=== PATIENT | female | born 1990 | race African-American/Black ===

== ENCOUNTER 2020-08-09 12:21 | Emergency (ER) | payer OTHER, SELFPAY ==
[2020-08-09 12:45] VITALS: BP 189/107; PULSE 77; RESP 20; TEMP 37.5; O2SAT 100; BMI 39.4
--- NOTE | 2020-08-09 13:10 | ECG_ITS ---
Test Reason : NAUSEA Blood Pressure : / mmHG Vent. Rate : 077 BPM Atrial Rate : 077 BPM P-R Int : 164 ms QRS Dur : 078 ms QT Int : 370 ms P-R-T Axes : 039 041 037 degrees QTc Int : 418 ms Normal sinus rhythm Normal ECG No previous ECGs available Referred By: Chung White Electronically Signed By:GILBERT SAVAGE MD
[2020-08-09 13:59] LABS: MANUAL DIFF FLAG NO
[2020-08-09 14:04] LABS: Glucose Urine UA NEG (NEG); Leukocyte Esterase Urine NEG (NEG); Nitrite Urine NEG (NEG); Specific Gravity - Urine 1.015 (1.005-1.025); Urine Blood NEG (NEG); Urine Ketones 5 MG/DL (NEG); Urine Protein NEG (NEG-TRACE)
[2020-08-09 14:07] LABS: Basophils Percent Auto 0.3 % (0-2); Eosinophils Percent Auto 0.1 % (0-4); Hematocrit 41.9 % (37-47); Hemoglobin 13.5 g/dl (12.0-16.0); Imm Gran Abs Auto 0.02 X10*3/uL (0.00-0.03); Imm Gran Pct Auto 0.2 % (0.0-0.4); Lymphocytes Absolute Auto 2.1 X10*3/uL (1.2-4.9); Lymphocytes Percent Auto 23.2 % (20-40); Mean Corpuscular HGB Conc 32.2 g/dl (31.0-35.0); Mean Corpuscular Hemoglobin 25.9 pg (27.0-33.0); Mean Corpuscular Volume 80.4 fL (80-98); Mean Platelet Volume 10.4 fL (9.4-12.3); Monocytes Absolute Auto 0.6 X10*3/uL (0.1-1.2); Monocytes Percent Auto 6.4 % (2-11); Neutrophils Absolute Auto 6.2 X10*3/uL (2.0-8.3); Neutrophils Percent Auto 69.8 % (45-73); Platelet Count 229 X10*3/uL (160-400); Red Blood Count 5.21 X10*6/uL (4.20-5.50); Red Cell Distribution Width 13.3 % (11.0-16.0); White Blood Count 8.9 X10*3/uL (4.8-10.8)
[2020-08-09 14:07] LABS: Appearance Urine CLEAR; Color Urine YELLOW
[2020-08-09 14:09] LABS: INTERNATIONAL NORM RATIO 1.1 (0.9-1.1); Prothrombin Time 13.5 SEC (10.8-13.0)
[2020-08-09 14:12] LABS: D Dimer 435 NG/ML; Partial Thromboplastin Time 37.7 SEC (24.1-38.0)
[2020-08-09 14:21] LABS: Alanine Aminotransferase 13 U/L (0-31); Albumin Level 4.8 g/dL (3.5-5.0); Alkaline Phosphatase 50 U/L (39-117); Anion Gap 17 (12-20); Aspartate Amino Transferase 15 U/L (5-31); Bilirubin Direct 0.2 mg/dL (0.0-0.5); Bilirubin Total 0.6 mg/dL (0.0-1.0); Blood Urea Nitrogen 6 mg/dL (9-16); Calcium 9.7 mg/dL (8.4-10.2); Carbon Dioxide 21 mmol/L (22-29); Chloride 103 mmol/L (96-108); Creatinine Clr Calc Pharmacy 122.9; Estimated Glomerular Filt Rate > 60; Glucose Random 92 mg/dL (60-115); Lipase 24 U/L (8-78); Potassium 4.5 mmol/l (3.3-5.1); Sodium 136 mmol/L (135-145); Total Protein 7.6 g/dL (6.5-8.0)
[2020-08-09] MEDS: Ketorolac Tromethamine 30 MG/ML VIAL IVPUSH (14:25)
[2020-08-09] MEDS: Metoclopramide HCl 10 MG/2 ML VIAL IVPUSH (14:26)
[2020-08-09 14:27] LABS: HCG Quantitative < 2 mIU/mL
[2020-08-09] MEDS: 0.9 % Sodium Chloride 1,000 ML 999 ML IVCONT (14:27)
[2020-08-09 14:28] LABS: B Type Natriuretic Peptide < 10 pg/mL (<100); Troponin-I High Sensitivity < 3.5 ng/L (<3.5-17.0)
--- NOTE | 2020-08-09 14:34 | ED_ITS ---
HPI - Nausea/Vomiting/Diarrhea General Chief complaint: Nausea/Vomiting/Diarrhea Stated complaint: ABD PAIN, VOMITING Time Seen by Provider: 08/09/20 13:10 Source: patient Mode of arrival: ambulatory Limitations: no limitations History of Present Illness HPI Narrative: patient presents to the ED for multiple complaints. Patient's 1st complaint is vomiting and nausea with upper abdominal pain for the past month. Patient was sent by PCP to ED to get repeat COVID and flu swab sent due to her having the symptoms. Patient also states the last 3 days having right- sided chest pain. Patient states no coughing, fever, chills swelling of lower extremities, calf pain, control use, or coughing up blood. Patient states upper abdominal pain radiating to the back. Associated nausea: Yes Related Data Home Medications Medication Instructions Recorded Confirmed albuterol sulfate 90 mcg/actuation INHALATION 08/09/20 aerosol inhaler amoxicillin 500 mg capsule 500 mg PO BID 08/09/20 doxepin 50 mg capsule 50 mg PO BEDTIME 08/09/20 fluticasone propionate 220 1 puff PO BID 08/09/20 mcg/actuation HFA aerosol inhaler hydrocodone 5 mg-acetaminophen 325 1 tab PO BID PRN 08/09/20 mg tablet lamotrigine 150 mg tablet 150 mg PO BID 08/09/20 metoclopramide HCl 10 mg tablet 10 mg PO Q8H PRN 08/09/20 oxycodone-acetaminophen 5 mg-325 1 tab PO Q6H PRN 08/09/20 mg tablet prednisone 20 mg tablet 20 mg PO DAILY 08/09/20 trazodone 50 mg tablet 75 mg PO BEDTIME 08/09/20 venlafaxine 150 mg 150 mg PO DAILY 08/09/20 capsule,extended release 24 hr venlafaxine 75 mg capsule,extended 75 mg PO QAM 08/09/20 release 24 hr Previous Rx's Medication Instructions Recorded amlodipine 5 mg PO DAILY #16 tab 08/09/20 azithromycin See Rx Instructions .ROUTE 08/09/20 .COMPLEX #6 tab azithromycin [Zithromax Z-Neal] See Rx Instructions .ROUTE 08/09/20 .COMPLEX #6 tab oxycodone-acetaminophen [Percocet] 1 tab PO Q6H PRN #12 tab 08/09/20 prednisone 40 mg PO DAILY #10 tab 08/09/20 Allergies Allergy/AdvReac Type Severity Reaction Status Date / Time ondansetron [From ZOFRAN] Allergy Intermediate NAUSEA & Unverified 08/09/20 12:45 VOMITING Review of Systems Review of Systems: Yes all other systems are reviewed and are negative Eyes: Eyes: Reports as per HPI, Reports no additional eye complaints, Denies blind spots, Denies blurry vision, Denies exophthalmos, Denies change in vision, Denies decreased night vision, Denies floaters, Denies irritation, Denies itchy eyes and Denies loss of peripheral vision ENT: Reports system reviewed and no additional complaints, except as documented, Reports as per HPI and Denies odynophagia Cardiovascular: Cardiovascular: Reports as per HPI, Reports no additional cardiovascular complaints, Denies Abdominal Cramping after Meds, Denies Abdominal Distension, Reports chest pain, Denies chest pain at rest, Denies rap id heart rate, Denies edema, Denies irregular heart rhythm, Denies dyspnea, Denies dyspnea on exertion, Denies orthopnea and Denies paroxysmal nocturnal dys pnea Respiratory: Respiratory: Reports as per HPI, Reports no additional respiratory complaints, Denies no additional respiratory complaints, Denies c hange in phlegm color, Denies chest congestion, Denies cough, Denies hemoptysis, Denies excessive phlegm production, Denies pain on inspiration, Denies dyspnea and Denies dyspnea on exertion Gastrointestinal: Gastrointestinal: Reports abdominal pain, Denies belching, Denies melena, Denies bloating, Denies hematochezia, Denies tenesmus, Denies change in stool character, Denies coffee ground emesis, Denies constipation, Denies GI cramping, Denies excessive flatus, Denies fecal incontinence, Denies loose stools, Reports nausea, Denies odynophagia and Reports vomiting Genitourinary: Genitourinary: Denies urinary frequency, Denies difficulty voiding, Denies nocturia, Denies pelvic pain, Denies urinary incontinence, Denies urinary hesitancy and Denies urinary urgency Musculoskeletal: Musculoskeletal: Reports as per HPI Neurologic: Reports system reviewed and no additional complaints, except as documented and Reports as per HPI Psychiatric: Psychiatric: Reports no additional psychiatric complaints and Reports as per HPI [facility] Past Medical History Medical History (Updated 08/09/20 @ 17:58 by ZEINAB Gonzalez) Asthma Gastroenteritis Hypertension Migraine Social History Social History Alcohol intake: never Smoking Status: Current every day smoker Use of substances other than those prescribed or required for medical reasons: No Advance Directives: No Advance Directives Information Provided: No Physical Exam Vital Signs: Vital Signs: Vital Signs Temp Pulse Resp BP Pulse Ox 08/09/20 17:42 98.9 F 91 19 162/106 H 99 08/09/20 15:23 99.1 F 71 17 152/91 H 98 08/09/20 12:45 99.5 F 77 20 189/107 H 100 Body Mass Index 39.4 Const: General: cooperative, healthy appearing, comfortable, no acute distress, well developed, alert and awake Orientation/consciousness: patient oriented x3 HENMT: Head: Yes normal to inspection Ears: hearing grossly normal bilaterally General nose exam: Normal external nose present Face and sinus: Yes normal facial exam Mouth: Normal oral and palatal mucosa present Eyes: General: appearance normal, both eyes and all related structures Neck: Neck: Yes normal visual inspection, Yes full ROM, Yes no lymphadenopathy, Yes no meningeal signs, No positive Brudzinski's sign and No positive Kernig's sign Chest: Chest palpation & inspection: normal inspection of the chest, normal palpation of entire chest wall and no localized rib tenderness Resp: Effort & Inspection: normal respiratory effort, able to speak in complete sentences, no audible wheezes, no cough, respiratory effort not decreased, no grunting, not labored, no nasal flaring, no paradoxical thoraco- abdom movements and no pursed lip breathing Auscultation: clear to auscultation bilaterally, no crackles, no rales, no rhonchi, no wheezes and breath sounds present Percussion: percussion normal Cardio: Jugular venous distension: no JVD Heart sounds: S1 normal heart sound present and S2 normal heart sound present GI: Inspection: Yes normal to inspection Palpation (GI): Soft to palpation, not firm, Tenderness to palpation present (GI) in the epigastrum, no guarding and not rigid Percussion: Yes normal to percussion Auscultation: normal bowel sounds Neuro: Other: Negative for facial droop. Negative for pronator drip. Patient has normal speech. All extremities motor, neuro, vascular exam is intact and equal strength. General: patient oriented x3, gait normal, no meningeal signs and CN's II-XI intact bilaterally Cranial nerves: Yes CN's II-XII intact bilaterally Course Course Course Narrative: Patient has multiple complaints. Due to patient stating right-sided chest pain at 30 years old patient will have D-dimer sent and also cardiac evaluation which will consist of troponin and EKG. Patient also have basic labs. Patient given Toradol and fluids or pain. Reevaluation(s) Reevaluation #1: Patient's D-dimer came back elevated patient will be sent for chest CT to rule out PE and abdominal CT to see if he has any gallstones. Time: 14:41 Reevaluation #2: patient is sleeping in bed and not any discomfort. Waiting for results of imaging. Time: 16:22 Reevaluation #3: patient abdominal CT came back negative for any pelvic/abdominal etiology. Chest CT negative for PE. Shows possible pneumonia. Patient will be discharged with antibiotics and steroid due to patient being asthmatic. UA is normal. Troponin is negative. Once again patient is sleeping in bed and not any discomfort. Patient's blood pressure improved without any interventions. Flu swab pending. Patient already has albuterol inhaler at home. Time: 17:08 Additional Reevaluation(s): repeat blood pressure slightly elevated. Negative for any focal deficits. Patient does not have any stroke-like symptoms. Head CT not indicated. Patient will be discharged with amlodipine. Patient will follow-up with her PCP. MDM - Nausea/Vomiting/Diarrhea MDM Narrative Medical decision making narrative: fracture bronchitis/pneumonia. Abdominal pain Lab Data Result diagrams: 08/09/20 13:53 08/09/20 13:53 Labs: Lab Results 08/09/20 08/09/20 08/09/20 Range/Units 13:38 13:52 13:53 WBC 8.9 (4.8-10.8) X10*3/uL RBC 5.21 (4.20-5.50) X10*6/uL Hgb 13.5 (12.0-16.0) g/dl Hct 41.9 (37-47) % MCV 80.4 (80-98) fL MCH 25.9 L (27.0-33.0) pg MCHC 32.2 (31.0-35.0) g/dl RDW 13.3 (11.0-16.0) % Plt Count 229 (160-400) X10*3/uL MPV 10.4 (9.4-12.3) fL Immature Gran % (Auto) 0.2 (0.0-0.4) % Neut % (Auto) 69.8 (45-73) % Lymph % (Auto) 23.2 (20-40) % [place] % (Auto) 6.4 (2-11) % Eos % (Auto) 0.1 (0-4) % Baso % (Auto) 0.3 (0-2) % Lymph # (Auto) 2.1 (1.2-4.9) X10*3/uL [place] # (Auto) 0.6 (0.1-1.2) X10*3/uL Eos # (Auto) 0.0 (0.0-0.4) X10*3/uL Baso # (Auto) 0.0 (0.0-0.2) X10*3/uL Abs Immat Gran (auto) 0.02 (0.00-0.03) X10*3/uL Absolute Neuts (auto) 6.2 (2.0-8.3) X10*3/uL Absolute Nucleated RBC 0.000 (0.0-0.012) X10*3/uL Nucleated RBC % (auto) 0.0 (0.0-0.2) /100WBC PT (10.8-13.0) SEC INR (0.9-1.1) APTT (24.1-38.0) SEC D-Dimer NG/ML Sodium (135-145) mmol/L Potassium (3.3-5.1) mmol/l Chloride (96-108) mmol/L Carbon Dioxide (22-29) mmol/L Anion Gap (12-20) BUN (9-16) mg/dL Creatinine (0.5-1.4) mg/dL Estim Creat Clear Calc Estimated GFR Random Glucose (60-115) mg/dL Calcium (8.4-10.2) mg/dL Total Bilirubin (0.0-1.0) mg/dL Direct Bilirubin (0.0-0.5) mg/dL AST (5-31) U/L ALT (0-31) U/L Alkaline Phosphatase (39-117) U/L Troponin I High Sens < 3.5 (<3.5-17.0) ng/L B-Natriuretic Peptide < 10 (<100) pg/mL Total Protein (6.5-8.0) g/dL Albumin (3.5-5.0) g/dL Lipase (8-78) U/L Beta HCG, Quant mIU/mL Urine Color YELLOW Urine Appearance CLEAR Urine pH 7.0 (5.0-8.0) Ur Specific Jeremiah 1.015 (1.005-1.025) Urine Protein NEG (NEG-TRACE) MG/DL Urine Glucose (UA) NEG (NEG) MG/DL Urine Ketones 5 (NEG) MG/DL Urine Blood NEG (NEG) Urine Nitrite NEG (NEG) Ur Leukocyte Esterase NEG (NEG) Influenza Type A (PCR) (Negative) Influenza Type B (PCR) (Negative) Influenza A & B Note RSV RNA Qual (PCR) (Negative) 08/09/20 08/09/20 08/09/20 Range/Units 13:53 13:53 16:42 WBC (4.8-10.8) X10*3/uL RBC (4.20-5.50) X10*6/uL Hgb (12.0-16.0) g/dl Hct (37-47) % MCV (80-98) fL MCH (27.0-33.0) pg MCHC (31.0-35.0) g/dl RDW (11.0-16.0) % Plt Count (160-400) X10*3/uL MPV (9.4-12.3) fL Immature Gran % (Auto) (0.0-0.4) % Neut % (Auto) (45-73) % Lymph % (Auto) (20-40) % [place] % (Auto) (2-11) % Eos % (Auto) (0-4) % Baso % (Auto) (0-2) % Lymph # (Auto) (1.2-4.9) X10*3/uL [place] # (Auto) (0.1-1.2) X10*3/uL Eos # (Auto) (0.0-0.4) X10*3/uL Baso # (Auto) (0.0-0.2) X10*3/uL Abs Immat Gran (auto) (0.00-0.03) X10*3/uL Absolute Neuts (auto) (2.0-8.3) X10*3/uL Absolute Nucleated RBC (0.0-0.012) X10*3/uL Nucleated RBC % (auto) (0.0-0.2) /100WBC PT 13.5 H (10.8-13.0) SEC INR 1.1 (0.9-1.1) APTT 37.7 (24.1-38.0) SEC D-Dimer 435 NG/ML Sodium 136 (135-145) mmol/L Potassium 4.5 (3.3-5.1) mmol/l Chloride 103 (96-108) mmol/L Carbon Dioxide 21 L (22-29) mmol/L Anion Gap 17 (12-20) BUN 6 L (9-16) mg/dL Creatinine 0.78 (0.5-1.4) mg/dL Estim Creat Clear Calc 122.9 Estimated GFR > 60 Random Glucose 92 (60-115) mg/dL Calcium 9.7 (8.4-10.2) mg/dL Total Bilirubin 0.6 (0.0-1.0) mg/dL Direct Bilirubin 0.2 (0.0-0.5) mg/dL AST 15 (5-31) U/L ALT 13 (0-31) U/L Alkaline Phosphatase 50 (39-117) U/L Troponin I High Sens (<3.5-17.0) ng/L B-Natriuretic Peptide (<100) pg/mL Total Protein 7.6 (6.5-8.0) g/dL Albumin 4.8 (3.5-5.0) g/dL Lipase 24 (8-78) U/L Beta HCG, Quant < 2 mIU/mL Urine Color Urine Appearance Urine pH (5.0-8.0) Ur Specific Jeremiah (1.005-1.025) Urine Protein (NEG-TRACE) MG/DL Urine Glucose (UA) (NEG) MG/DL Urine Ketones (NEG) MG/DL Urine Blood (NEG) Urine Nitrite (NEG) Ur Leukocyte Esterase (NEG) Influenza Type A (PCR) NEGATIVE (Negative) Influenza Type B (PCR) NEGATIVE (Negative) Influenza A & B Note See Note RSV RNA Qual (PCR) NEGATIVE (Negative) ECG Data Interpretation: Normal sinus rhythm. Ventricular rate 77. LA interval 164. Negative STEMI Discharge Plan Discharge Clinical Impression: Bronchitis, Pneumonia, Abdominal pain, Hypertension Patient Disposition: Home, Self-Care Instructions: Acute Bronchitis (ED), Abdominal Pain (ED), Hypertension (ED), Pneumonia (ED) Prescriptions: New azithromycin [Zithromax Z-Neal] 250 mg tablet See Rx Instructions .ROUTE .COMPLEX Qty: 6 RF: 0 azithromycin 250 mg tablet See Rx Instructions .ROUTE .COMPLEX Qty: 6 RF: 0 prednisone 20 mg tablet 40 mg PO DAILY Qty: 10 RF: 0 oxycodone-acetaminophen [Percocet] 5-325 mg tablet 1 tab PO Q6H PRN (Reason: pain) Qty: 12 RF: 0 amlodipine 5 mg tablet 5 mg PO DAILY Qty: 16 RF: 0 No Action oxycodone-acetaminophen 5-325 mg tablet 1 tab PO Q6H PRNRF: 0 lamotrigine 150 mg tablet 150 mg PO BID RF: 0 hydrocodone-acetaminophen 5-325 mg tablet 1 tab PO BID PRNRF: 0 trazodone 50 mg tablet 75 mg PO BEDTIME RF: 0 venlafaxine 150 mg capsule,extended release 24hr 150 mg PO DAILY RF: 0 doxepin 50 mg capsule 50 mg PO BEDTIME RF: 0 Flovent HFA 220 mcg/actuation HFA aerosol inhaler 1 puff PO BID RF: 0 metoclopramide HCl 10 mg tablet 10 mg PO Q8H PRN (Reason: nausea) RF: 0 amoxicillin 500 mg capsule 500 mg PO BID RF: 0 prednisone 20 mg tablet 20 mg PO DAILY RF: 0 albuterol sulfate 90 mcg/actuation HFA aerosol inhaler inhalation RF: 0 venlafaxine 75 mg capsule,extended release 24hr 75 mg PO QAM RF: 0 Referrals: Lawanda Elizondo MD [Primary Care Provider] - 2 days ( COVID swab pending. Chest CT shows possible pneumonia. CT negative for PE. Patient started antibiotics. Abdominal CT scan came back normal. Blood pressure improved in the ED. Patient discharged with amlodopine. ) Stand Alone Forms: Work/School Release Print Language: Malagasy
--- NOTE | 2020-08-09 14:42 | CT_ITS ---
EXAMINATION: CT ANGIOGRAM OF THE CHEST WITH AND WITHOUT CONTRAST (CT PULMONARY ANGIOGRAM FOR PE) CLINICAL INFORMATION: Reason for Exam right sided chest pain. PE? COMPARISON: CT abdomen with contrast 10/27/2018 TECHNIQUE: Prior to contrast administration, noncontrast localization images were obtained. Subsequently, multidetector volumetric imaging was performed from the thoracic inlet to below the diaphragms following the administration of 100 mL Omnipaque 350 intravenous contrast. Sagittal, coronal, and MIP oblique sagittal reformatted images were obtained on the CT workstation, uploaded to PACS, and reviewed. This CT examination was performed using dose optimization techniques as appropriate, variously including the following: *Automated exposure control *Adjustment of mA and/or kV according to patient size (this includes techniques or standardized protocols for targeted exams where dose is matched to indication/reason for exam; i.e. extremities or head) *Use of iterative reconstruction technique Total exam dose-length product 363 mGy-cm FINDINGS: QUALITY OF STUDY/CONTRAST BOLUS: Satisfactory. PULMONARY ARTERIES: No central or segmental pulmonary emboli. THORACIC AORTA: No aneurysm or dissection. LUNG: The central airways are clear and there is no endobronchial lesion or bronchiectasis. There is no pneumothorax or lobar or segmental airspace consolidation. No mass or nodularity. There is a small nonspecific geographic groundglass opacity subpleural posterior left lower lobe. PLEURA: No pleural effusion or pneumothorax. MEDIASTINUM: Normal heart size. No pericardial effusion. No hilar or mediastinal lymphadenopathy. No evidence of septal bowing or right heart strain. CHEST WALL/AXILLA: No axillary or internal mammary lymphadenopathy. OSSEOUS STRUCTURES: No acute or suspicious osseous abnormality. UPPER ABDOMEN: Unremarkable. No reflux of contrast into the hepatic veins to suggest elevated right heart pressures. CT/CT angio chest PE protocol IMPRESSION: 1. No pulmonary embolism. 2. No thoracic aortic dissection. 3. Solitary small geographic groundglass opacity subpleural left lower lobe. Lungs otherwise clear. No effusion. VTE: negative
--- NOTE | 2020-08-09 14:42 | CT_ITS ---
EXAMINATION: CT ABDOMEN AND PELVIS WITH CONTRAST CLINICAL INFORMATION: Abdominal pain. COMPARISON: October 27, 2018. TECHNIQUE: Contiguous axial thin section helical images of the abdomen and pelvis were performed following the administration of 100 mL of intravenous Omnipaque 350. The data set was reformatted in the coronal and sagittal planes and reviewed on an independent workstation. DLP: 785 mGy-cm. FINDINGS: The visualized lung bases are clear. The visualized portions of the heart are unremarkable. The liver is of normal size and attenuation without focal lesions nor intrahepatic biliary ductal dilation. A normal gallbladder is identified. There is no wall thickening or discernible pericholecystic fluid. The spleen, pancreas, adrenal glands are unremarkable. Both kidneys are of normal size and attenuation without hydronephrosis or nephrolithiasis. Following the administration of IV contrast, prompt symmetric nephrograms are displayed. There is no abdominal free fluid. There is neither mesenteric nor retroperitoneal lymphadenopathy. Normal unopacified loops of small and large bowel are identified. [id number]). There is no pelvic free fluid. The urinary bladder is unremarkable. There is neither pelvic nor inguinal lymphadenopathy. Bone windows: Neither sclerotic nor lytic bone lesions are identified. CT/CT abdomen pelvis w con IMPRESSION: 2.5 cm left ovarian cyst. No acute abdominal or pelvic inflammatory or infectious processes. Automated exposure control (Care Dose) Adjustment of the mA and/or kv according to patient size (this includes techniques or standardized protocols for targeted exams where dose is matched to indication / reason for exam; i.e. extremities or head).
[2020-08-09 15:23] VITALS: BP 152/91; PULSE 71; RESP 17; TEMP 37.3; O2SAT 98
[2020-08-09] MEDS: iohexoL 350 MG/ML 100 ML INFUS..BTL IV (15:56)
[2020-08-09 17:20] LABS: Influenza A PCR NEGATIVE (Negative); Influenza B PCR NEGATIVE (Negative)
[2020-08-09 17:28] LABS: Resp Syncy Virus RNA Qual PCR NEGATIVE (Negative)
[2020-08-09 17:42] VITALS: BP 162/106; PULSE 91; RESP 19; TEMP 37.2; O2SAT 99
== END 2020-08-09 18:10 | disposition home or self-care (01) ==
PROVIDERS: Physician Assistant; Emergency Provider Internal Medicine; PCP Internal Medicine
DX: J18.9 Pneumonia, unspecified organism (principal); J40 Bronchitis, not specified as acute or chronic; R10.9 Unspecified abdominal pain; I10 Essential (primary) hypertension; Z79.899 Other long term (current) drug therapy; Z20.828 Contact with and (suspected) exposure to other viral communicable diseases; F17.200 Nicotine dependence, unspecified, uncomplicated; Z71.6 Tobacco abuse counseling
CPT/HCPCS: 36415; 71275; 74177; 80053; 80076; 81003; 82248; 83690; 83880; 84484; 84702; 85025; 85379; 85610; 85730; 87631; 93005; 96361; 96374; 96375; 99284; J1885; J2765; Q9967; U0003

== ENCOUNTER 2020-10-24 09:33 | Outpatient (REF) | payer OTHER, SELFPAY ==
[2020-10-24 09:45] LABS: COVID-19 Test Positive (Negative); IDNOW Serial# 55D5AD1C
== END 2020-10-24 09:34 | disposition home or self-care (01) ==
LOC: HO.EMPCOV 09:33
PROVIDERS: Visit Provider Internal Medicine
DX: Z20.822 Contact with and (suspected) exposure to COVID-19 (principal)
CPT/HCPCS: 36415; 87635; C9803

== ENCOUNTER 2022-10-09 18:20 | Emergency (ER) | payer OTHER, SELFPAY ==
--- NOTE | ~2022-10-09 | XR_ITS ---
EXAMINATION: XR CHEST CLINICAL INFORMATION: Shortness of breath COMPARISON: None TECHNIQUE: 2 views of the chest were obtained. FINDINGS: No significant abnormality is noted involving the heart, lungs, mediastinum, bony thorax or soft tissues. XR/XR chest 2V IMPRESSION: Unremarkable examination.
[2022-10-09 18:48] VITALS: BP 136/95; PULSE 95; RESP 18; TEMP 36.9; O2SAT 100; BMI 40.1
--- NOTE | 2022-10-09 18:48 | ED.RECABL ---
HPI - Recheck/Abnormal Lab/Rx General Chief Complaint: Recheck/Abnormal Lab/Rx <Carmel Moon NP - Last Filed: 10/09/22 19:04> Stated Complaint: abnormal labs sent in by <Carmel Moon NP - Last Filed: 10/09/22 19:04> Source: patient <Cristine Lockett MD - Last Filed: 10/09/22 23:57> Mode of arrival: ambulatory <Cristine Lockett MD - Last Filed: 10/09/22 23:57> Limitations: no limitations <Cristine Lockett MD - Last Filed: 10/09/22 23:57> History of Present Illness HPI narrative: 32-year-old female sent by PCP for further evaluation of abnormal D-dimer. Patient was seen and evaluated by her PCP for checkup as the patient really been getting randomly sick and with generalized weakness. Patient otherwise decline recent travel, no lower extremities pain or swelling, no history or family history of PE or DVT. Patient also declined fever chills, been having shortness of breath mostly with exertion thought to be due to weight related and low exercise intolerance. <Cristine Lockett MD - Last Filed: 10/09/22 23:57> Related Data Home Medications: Home Medications Medication Instructions Recorded Confirmed albuterol sulfate 90 mcg/actuation inhalation 08/09/20 aerosol inhaler amoxicillin 500 mg capsule 500 mg PO BID 08/09/20 doxepin 50 mg capsule 50 mg PO BEDTIME 08/09/20 fluticasone propionate 220 1 puff PO BID 08/09/20 mcg/actuation HFA aerosol inhaler hydrocodone 5 mg-acetaminophen 325 1 tab PO BID PRN 08/09/20 mg tablet lamotrigine 150 mg tablet 150 mg PO BID 08/09/20 metoclopramide HCl 10 mg tablet 10 mg PO Q8H PRN nausea 08/09/20 oxycodone-acetaminophen 5 mg-325 1 tab PO Q6H PRN 08/09/20 mg tablet prednisone 20 mg tablet 20 mg PO DAILY 08/09/20 trazodone 50 mg tablet 75 mg PO BEDTIME insomnia 08/09/20 venlafaxine 150 mg 150 mg PO DAILY 08/09/20 capsule,extended release 24 hr venlafaxine 75 mg capsule,extended 75 mg PO QAM 08/09/20 release 24 hr Previous Rx's Medication Instructions Recorded amlodipine 5 mg tablet 5 mg PO DAILY hypertension #16 tabs 08/09/20 azithromycin 250 mg tablet See Rx Instructions PO .COMPLEX #6 08/09/20 tabs azithromycin 250 mg tablet See Rx Instructions PO .COMPLEX #6 08/09/20 (Zithromax Z-Nael) tabs oxycodone-acetaminophen 5 mg-325 1 tab PO Q6H PRN pain #12 tabs 08/09/20 mg tablet (Percocet) prednisone 20 mg tablet 40 mg PO DAILY #10 tabs 08/09/20 <Carmel Moon NP - Last Filed: 10/09/22 19:04> Allergies/Adverse Reactions: Allergies Allergy/AdvReac Type Severity Reaction Status Date / Time ondansetron [From ZOFRAN] Allergy Intermediate NAUSEA & Unverified 08/09/20 12:45 VOMITING <Carmel Moon NP - Last Filed: 10/09/22 19:04> Review of Systems Review of Systems: All other systems are reviewed and are negative Constitutional: Reports as per HPI and Reports no additional constitutional complaints Eyes: Reports as per HPI and Reports no additional eye complaints Reports system reviewed and no additional complaints, except as documented Cardiovascular: Reports as per HPI and Reports no additional cardiovascular complaints Respiratory: Reports as per HPI and Reports no additional respiratory complaints Gastrointestinal: Reports as per HPI and Reports no additional gastrointestinal complaints Genitourinary: Reports no additional female genitourinary complaints Musculoskeletal: Reports no additional musculoskeletal complaints Skin/Breast: Reports system reviewed and no additional complaints, except as docu Psychiatric: Reports no additional psychiatric complaints Endocrine: Reports no additional endocrine complaints Hematologic/Lymphatic: Reports no additional hematologic/lymphatic complaints Allergic/Immunologic: Reports no additional allergic/immunologic complaints Reports system reviewed and no additional complaints, except as documented and Reports Abnormal speech present <Cristine Lockett MD - Last Filed: 10/09/22 23:57> [facility] Past Medical History Medical History: Medical History Asthma Gastroenteritis Hypertension Migraine <Carmel Moon NP - Last Filed: 10/09/22 19:04> Social History Social History: Social History Alcohol intake: never Advance Directives: No Advance Directives Information Provided: Yes <Carmel Moon NP - Last Filed: 10/09/22 19:04> Physical Exam Vital Signs: Vital Signs: Last Vital Signs Temp 98.5 F 10/09/22 18:48 Pulse 95 10/09/22 18:48 Resp 18 10/09/22 18:48 BP 136/95 H 10/09/22 18:48 Pulse Ox 100 10/09/22 18:48 BMI result Body Mass Index 40.1 <Carmel Moon NP - Last Filed: 10/09/22 19:04> Vital Signs: Last Vital Signs Temp 98.5 F 10/09/22 18:48 Pulse 95 10/09/22 18:48 Resp 18 10/09/22 18:48 BP 136/95 H 10/09/22 18:48 Pulse Ox 100 10/09/22 18:48 BMI result Body Mass Index 40.1 Vital signs have been reviewed as appeared to be correct. Blood pressure normal. Heart rate normal. Respiration rate normal. Temperature normal. Oxygen saturation normal. <Cristine Lockett MD - Last Filed: 10/09/22 23:57> Appearance: Alert. Oriented X3. No acute distress. Head: Normal external exam. Normocephalic. Atraumatic. No Cerda signs noted. No raccoon eyes noted Eyes: PERRLA. EOMI. Conjunctiva and sclera normal. Eyelids normal. ENT: TM's Normal. Pharynx normal. Uvula midline. Moist mucous membranes. No trismus noted. No drooling noted. No muffled voice noted. Neck: Normal inspection. Neck supple. FROM. No adenopathy. Thyroid Normal. No meningeal signs. No neck mass noted. CVS: Normal heart rate and rhythm. Heart sound normal. No murmurs noted. Pulses normal throughout. Respiratory: No respiratory distress. Painless inspiration. Breath sounds normal. No wheezes/rales/rhonchi noted. Chest nontender. No accessory muscle usage noted or decreased air movement noted. Abdomen: Soft and nontender. Bowel sounds normal in all 4 quadrants. No distention noted. No organomegaly noted. No visible injury noted. Back: No CVA tenderness. Full range of motion noted. Skin: Skin warm and dry. Normal skin color. Normal skin turgor. No rashes/lesions/lacerations noted. Extremities: No lower extremity edema. Extremities exhibit normal range of motion. Extremities nontender. Neuro: Oriented X 3. Cranial nerve exam: II-XII are grossly intact No motor deficit. No sensory deficit. Reflexes normal. <Cristine Lockett MD - Last Filed: 10/09/22 23:57> Course Course Course Narrative: This is rapid medical exam. Deferred additional HPI, ROS, PE to primary provider. 32 yo female with history of HTN here with complaints of abnormal labs. Patient reports she has been having some shortness of breath and chest discomfort. She had an outpatient D-dimer that was positive and was referred into the ER for further evaluation. Patient denies any recent travel, recent surgery, OCP use, history or family history of DVT or PE. She denies any leg swelling or leg pain. Will repeat labs, EKG, CXR, covid screen. VSS <Carmel Moon NP - Last Filed: 10/09/22 19:04> Reevaluation(s) Reevaluation #1: Patient 32-year-old female sent by PCP for evaluation of abnormal D-dimer, patient at low risk for DVT/PE. Patient's Wells criteria is 0. Patient was reassured and was instructed to follow-up with PCP. <Cristine Lockett MD - Last Filed: 10/09/22 23:57> Time: 23:53 <Cristine Lockett MD - Last Filed: 10/09/22 23:57> Medical Decision Making Differential Diagnosis Differential Diagnoses: The differential diagnosis associated with the presentation includes <Cristine Lockett MD - Last Filed: 10/09/22 23:57> Pneumonia/pulmonary embolism/DVT/upper respiratory viral infection/ACS <Cristine Lockett MD - Last Filed: 10/09/22 23:57> Lab Data MDM Lab Attestation statement: I reviewed the patient's lab results. <Cristine Lockett MD - Last Filed: 10/09/22 23:57> Result Diagrams: : 10/09/22 19:12 10/09/22 19:12 <Carmel Moon NP - Last Filed: 10/09/22 19:04> Labs: Lab Results 10/09/22 10/09/22 10/09/22 Range/Units 19:07 19:12 19:12 WBC 6.8 (4.8-10.8) X10*3/uL RBC 4.79 (4.20-5.50) X10*6/uL Hgb 12.5 (12.0-16.0) g/dl Hct 39.0 (37.0-47.0) % MCV 81.4 (80.0-98.0) fL MCH 26.1 L (27.0-33.0) pg MCHC 32.1 (31.0-35.0) g/dl RDW 13.4 (11.0-16.0) % Plt Count 220 (160-400) X10*3/uL MPV 10.5 (9.4-12.3) fL Immature Gran % (Auto) 0.3 (0.0-0.4) % Neut % (Auto) 52.4 (45-73) % Lymph % (Auto) 38.3 (20-40) % [place] % (Auto) 6.0 (2-11) % Eos % (Auto) 2.4 (0-4) % Baso % (Auto) 0.6 (0-2) % Lymph # (Auto) 2.6 (1.2-4.9) X10*3/uL [place] # (Auto) 0.4 (0.1-1.2) X10*3/uL Eos # (Auto) 0.2 (0.0-0.4) X10*3/uL Baso # (Auto) 0.0 (0.0-0.2) X10*3/uL Abs Immat Gran (auto) 0.02 (0.00-0.03) X10*3/uL Absolute Neuts (auto) 3.6 (2.0-8.3) x10*3/uL Absolute Nucleated RBC 0.000 (0.0-0.012) X10*3/uL Nucleated RBC % (auto) 0.0 (0.0-0.2) /100WBC PT (10.0-13.1) SEC INR (0.9-1.1) D-Dimer High Sensitivty NG/ML Sodium 139 (135-145) mmol/L Potassium 4.5 (3.3-5.1) mmol/L Chloride 104 (96-108) mmol/L Carbon Dioxide 29 (22-29) mmol/L Anion Gap 11 L (12-20) BUN 10 (9-16) mg/dL Creatinine 1.01 (0.5-1.4) mg/dL Estim Creat Clear Calc 94.1 Estimated GFR > 60 Random Glucose 96 (60-115) mg/dL Calcium 10.1 (8.4-10.2) mg/dL Total Bilirubin < 0.2 (0.0-1.0) mg/dL Direct Bilirubin < 0.2 (0.0-0.5) mg/dL AST 14 (5-31) U/L ALT 11 (0-31) U/L Alkaline Phosphatase 54 (39-117) U/L Troponin I High Sens (<3.5-17.0) ng/L Total Protein 7.0 (6.5-8.0) g/dL Albumin 4.4 (3.5-5.0) g/dL Influenza Type A (PCR) NEGATIVE (Negative) Influenza Type B (PCR) NEGATIVE (Negative) RSV RNA Qual (PCR) NEGATIVE (Negative) SARS-CoV-2 RNA (RT-PCR) NEGATIVE (Negative) 10/09/22 10/09/22 10/09/22 Range/Units 19:12 19:12 19:12 WBC (4.8-10.8) X10*3/uL RBC (4.20-5.50) X10*6/uL Hgb (12.0-16.0) g/dl Hct (37.0-47.0) % MCV (80.0-98.0) fL MCH (27.0-33.0) pg MCHC (31.0-35.0) g/dl RDW (11.0-16.0) % Plt Count (160-400) X10*3/uL MPV (9.4-12.3) fL Immature Gran % (Auto) (0.0-0.4) % Neut % (Auto) (45-73) % Lymph % (Auto) (20-40) % [place] % (Auto) (2-11) % Eos % (Auto) (0-4) % Baso % (Auto) (0-2) % Lymph # (Auto) (1.2-4.9) X10*3/uL [place] # (Auto) (0.1-1.2) X10*3/uL Eos # (Auto) (0.0-0.4) X10*3/uL Baso # (Auto) (0.0-0.2) X10*3/uL Abs Immat Gran (auto) (0.00-0.03) X10*3/uL Absolute Neuts (auto) (2.0-8.3) x10*3/uL Absolute Nucleated RBC (0.0-0.012) X10*3/uL Nucleated RBC % (auto) (0.0-0.2) /100WBC PT 12.1 (10.0-13.1) SEC INR 1.1 (0.9-1.1) D-Dimer High Sensitivty 189 NG/ML Sodium (135-145) mmol/L Potassium (3.3-5.1) mmol/L Chloride (96-108) mmol/L Carbon Dioxide (22-29) mmol/L Anion Gap (12-20) BUN (9-16) mg/dL Creatinine (0.5-1.4) mg/dL Estim Creat Clear Calc Estimated GFR Random Glucose (60-115) mg/dL Calcium (8.4-10.2) mg/dL Total Bilirubin (0.0-1.0) mg/dL Direct Bilirubin (0.0-0.5) mg/dL AST (5-31) U/L ALT (0-31) U/L Alkaline Phosphatase (39-117) U/L Troponin I High Sens < 3.5 (<3.5-17.0) ng/L Total Protein (6.5-8.0) g/dL Albumin (3.5-5.0) g/dL Influenza Type A (PCR) (Negative) Influenza Type B (PCR) (Negative) RSV RNA Qual (PCR) (Negative) SARS-CoV-2 RNA (RT-PCR) (Negative) <Carmel Moon NP - Last Filed: 10/09/22 19:04> Lab Results 10/09/22 10/09/22 10/09/22 Range/Units 19:07 19:12 19:12 WBC 6.8 (4.8-10.8) X10*3/uL RBC 4.79 (4.20-5.50) X10*6/uL Hgb 12.5 (12.0-16.0) g/dl Hct 39.0 (37.0-47.0) % MCV 81.4 (80.0-98.0) fL MCH 26.1 L (27.0-33.0) pg MCHC 32.1 (31.0-35.0) g/dl RDW 13.4 (11.0-16.0) % Plt Count 220 (160-400) X10*3/uL MPV 10.5 (9.4-12.3) fL Immature Gran % (Auto) 0.3 (0.0-0.4) % Neut % (Auto) 52.4 (45-73) % Lymph % (Auto) 38.3 (20-40) % [place] % (Auto) 6.0 (2-11) % Eos % (Auto) 2.4 (0-4) % Baso % (Auto) 0.6 (0-2) % Lymph # (Auto) 2.6 (1.2-4.9) X10*3/uL [place] # (Auto) 0.4 (0.1-1.2) X10*3/uL Eos # (Auto) 0.2 (0.0-0.4) X10*3/uL Baso # (Auto) 0.0 (0.0-0.2) X10*3/uL Abs Immat Gran (auto) 0.02 (0.00-0.03) X10*3/uL Absolute Neuts (auto) 3.6 (2.0-8.3) x10*3/uL Absolute Nucleated RBC 0.000 (0.0-0.012) X10*3/uL Nucleated RBC % (auto) 0.0 (0.0-0.2) /100WBC PT (10.0-13.1) SEC INR (0.9-1.1) D-Dimer High Sensitivty NG/ML Sodium 139 (135-145) mmol/L Potassium 4.5 (3.3-5.1) mmol/L Chloride 104 (96-108) mmol/L Carbon Dioxide 29 (22-29) mmol/L Anion Gap 11 L (12-20) BUN 10 (9-16) mg/dL Creatinine 1.01 (0.5-1.4) mg/dL Estim Creat Clear Calc 94.1 Estimated GFR > 60 Random Glucose 96 (60-115) mg/dL Calcium 10.1 (8.4-10.2) mg/dL Total Bilirubin < 0.2 (0.0-1.0) mg/dL Direct Bilirubin < 0.2 (0.0-0.5) mg/dL AST 14 (5-31) U/L ALT 11 (0-31) U/L Alkaline Phosphatase 54 (39-117) U/L Troponin I High Sens (<3.5-17.0) ng/L Total Protein 7.0 (6.5-8.0) g/dL Albumin 4.4 (3.5-5.0) g/dL Influenza Type A (PCR) NEGATIVE (Negative) Influenza Type B (PCR) NEGATIVE (Negative) RSV RNA Qual (PCR) NEGATIVE (Negative) SARS-CoV-2 RNA (RT-PCR) NEGATIVE (Negative) 10/09/22 10/09/22 10/09/22 Range/Units 19:12 19:12 19:12 WBC (4.8-10.8) X10*3/uL RBC (4.20-5.50) X10*6/uL Hgb (12.0-16.0) g/dl Hct (37.0-47.0) % MCV (80.0-98.0) fL MCH (27.0-33.0) pg MCHC (31.0-35.0) g/dl RDW (11.0-16.0) % Plt Count (160-400) X10*3/uL MPV (9.4-12.3) fL Immature Gran % (Auto) (0.0-0.4) % Neut % (Auto) (45-73) % Lymph % (Auto) (20-40) % [place] % (Auto) (2-11) % Eos % (Auto) (0-4) % Baso % (Auto) (0-2) % Lymph # (Auto) (1.2-4.9) X10*3/uL [place] # (Auto) (0.1-1.2) X10*3/uL Eos # (Auto) (0.0-0.4) X10*3/uL Baso # (Auto) (0.0-0.2) X10*3/uL Abs Immat Gran (auto) (0.00-0.03) X10*3/uL Absolute Neuts (auto) (2.0-8.3) x10*3/uL Absolute Nucleated RBC (0.0-0.012) X10*3/uL Nucleated RBC % (auto) (0.0-0.2) /100WBC PT 12.1 (10.0-13.1) SEC INR 1.1 (0.9-1.1) D-Dimer High Sensitivty 189 NG/ML Sodium (135-145) mmol/L Potassium (3.3-5.1) mmol/L Chloride (96-108) mmol/L Carbon Dioxide (22-29) mmol/L Anion Gap (12-20) BUN (9-16) mg/dL Creatinine (0.5-1.4) mg/dL Estim Creat Clear Calc Estimated GFR Random Glucose (60-115) mg/dL Calcium (8.4-10.2) mg/dL Total Bilirubin (0.0-1.0) mg/dL Direct Bilirubin (0.0-0.5) mg/dL AST (5-31) U/L ALT (0-31) U/L Alkaline Phosphatase (39-117) U/L Troponin I High Sens < 3.5 (<3.5-17.0) ng/L Total Protein (6.5-8.0) g/dL Albumin (3.5-5.0) g/dL Influenza Type A (PCR) (Negative) Influenza Type B (PCR) (Negative) RSV RNA Qual (PCR) (Negative) SARS-CoV-2 RNA (RT-PCR) (Negative) <Cristine Lockett MD - Last Filed: 10/09/22 23:57> Independent Interpretation I performed an independent interpretation of an: EKG (Normal sinus rhythm at 82 beats per minute, normal axis deviation, normal intervals, no ST-T changes.) and Plain X-Ray (Chest: No acute intrathoracic pathology.) <Cristine Lockett MD - Last Filed: 10/09/22 23:57> Radiology Impression Discussion of test interpretation with radiology: I have reviewed the radiologist's reading. <Cristine Lockett MD - Last Filed: 10/09/22 23:57> Discharge Plan Discharge Clinical Impression: Generalized weakness, Encounter for medical screening examination <Carmel Moon NP - Last Filed: 10/09/22 19:04> Patient Disposition: Home, Self-Care <Carmel Moon NP - Last Filed: 10/09/22 19:04> Additional Instructions: Follow-up with your PCP, return if any shortness of breath or chest pain. <Carmel Moon NP - Last Filed: 10/09/22 19:04> Prescriptions: No Action azithromycin [Zithromax Z-Neal] 250 mg tablet See Rx Instructions .ROUTE .COMPLEX Qty: 6 0RF Rx Instructions: take 500 mg today (day 1), then 250 mg for 4 days (days 2-5) azithromycin 250 mg tablet See Rx Instructions .ROUTE .COMPLEX Qty: 6 0RF Rx Instructions: take 500 mg today (day 1), then 250 mg for 4 days (days 2-5) prednisone 20 mg tablet 40 mg PO DAILY Qty: 10 0RF oxycodone-acetaminophen [Percocet] 5-325 mg tablet 1 tab PO Q6H PRN (Reason: pain) Qty: 12 0RF amlodipine 5 mg tablet 5 mg PO DAILY Qty: 16 0RF oxycodone-acetaminophen 5-325 mg tablet 1 tab PO Q6H PRN lamotrigine 150 mg tablet 150 mg PO BID hydrocodone-acetaminophen 5-325 mg tablet 1 tab PO BID PRN trazodone 50 mg tablet 75 mg PO BEDTIME venlafaxine 150 mg capsule,extended release 24hr 150 mg PO DAILY doxepin 50 mg capsule 50 mg PO BEDTIME Flovent HFA 220 mcg/actuation HFA aerosol inhaler 1 puff PO BID metoclopramide HCl 10 mg tablet 10 mg PO Q8H PRN (Reason: nausea) amoxicillin 500 mg capsule 500 mg PO BID prednisone 20 mg tablet 20 mg PO DAILY albuterol sulfate 90 mcg/actuation HFA aerosol inhaler inhalation venlafaxine 75 mg capsule,extended release 24hr 75 mg PO QAM <Carmel Moon NP - Last Filed: 10/09/22 19:04> Referrals: Lawanda Elizondo MD [Primary Care Provider] - <Carmel Moon NP - Last Filed: 10/09/22 19:04>
--- NOTE | 2022-10-09 18:55 | ECG_ITS ---
Test Reason : chest pain/ SOB Blood Pressure : / mmHG Vent. Rate : 082 BPM Atrial Rate : 082 BPM P-R Int : 166 ms QRS Dur : 080 ms QT Int : 368 ms P-R-T Axes : 031 012 023 degrees QTc Int : 429 ms Normal sinus rhythm Normal ECG When compared with ECG of 09-AUG-2020 13:25, No significant change was found Referred By: Carmel Moon Electronically Signed By:MIRANDA FARRIS MD
[2022-10-09 19:17] LABS: MANUAL DIFF FLAG NO
[2022-10-09 19:18] LABS: Basophils Percent Auto 0.6 % (0-2); Eosinophils Absolute Auto 0.2 X10*3/uL (0.0-0.4); Eosinophils Percent Auto 2.4 % (0-4); Hemoglobin 12.5 g/dl (12.0-16.0); Imm Gran Abs Auto 0.02 X10*3/uL (0.00-0.03); Imm Gran Pct Auto 0.3 % (0.0-0.4); Lymphocytes Absolute Auto 2.6 X10*3/uL (1.2-4.9); Lymphocytes Percent Auto 38.3 % (20-40); Mean Corpuscular HGB Conc 32.1 g/dl (31.0-35.0); Mean Corpuscular Hemoglobin 26.1 pg (27.0-33.0); Mean Corpuscular Volume 81.4 fL (80.0-98.0); Mean Platelet Volume 10.5 fL (9.4-12.3); Monocytes Absolute Auto 0.4 X10*3/uL (0.1-1.2); Neutrophils Absolute Auto 3.6 x10*3/uL (2.0-8.3); Neutrophils Percent Auto 52.4 % (45-73); Platelet Count 220 X10*3/uL (160-400); Red Blood Count 4.79 X10*6/uL (4.20-5.50); Red Cell Distribution Width 13.4 % (11.0-16.0); White Blood Count 6.8 X10*3/uL (4.8-10.8)
[2022-10-09 19:26] LABS: D Dimer High Sensitivity 189 NG/ML
[2022-10-09 19:30] LABS: INTERNATIONAL NORM RATIO 1.1 (0.9-1.1); Prothrombin Time 12.1 SEC (10.0-13.1)
[2022-10-09 19:38] LABS: Alanine Aminotransferase 11 U/L (0-31); Albumin Level 4.4 g/dL (3.5-5.0); Alkaline Phosphatase 54 U/L (39-117); Anion Gap 11 (12-20); Aspartate Amino Transferase 14 U/L (5-31); Bilirubin Direct < 0.2 mg/dL (0.0-0.5); Bilirubin Total < 0.2 mg/dL (0.0-1.0); Blood Urea Nitrogen 10 mg/dL (9-16); Calcium 10.1 mg/dL (8.4-10.2); Carbon Dioxide 29 mmol/L (22-29); Chloride 104 mmol/L (96-108); Creatinine Clr Calc Pharmacy 94.1; Estimated Glomerular Filt Rate > 60; Glucose Random 96 mg/dL (60-115); Potassium 4.5 mmol/L (3.3-5.1); Sodium 139 mmol/L (135-145)
[2022-10-09 19:45] LABS: Troponin-I High Sensitivity < 3.5 ng/L (<3.5-17.0)
[2022-10-09 19:55] LABS: Influenza A PCR NEGATIVE (Negative); Influenza B PCR NEGATIVE (Negative); Resp Syncy Virus RNA Qual PCR NEGATIVE (Negative); SARS COV2 PCR INHOUSE NEGATIVE (Negative)
== END 2022-10-10 00:05 | disposition home or self-care (01) ==
PROVIDERS: Nurse Practitioner Family; Emergency Provider Emergency Medicine; PCP Internal Medicine
DX: R53.1 Weakness (principal); R79.89 Other specified abnormal findings of blood chemistry; Z20.828 Contact with and (suspected) exposure to other viral communicable diseases
CPT/HCPCS: 0241U; 36415; 71046; 80048; 80076; 84484; 85025; 85379; 85610; 93005; 99283